=== PATIENT | female | born 1965 | race American Indian/Alaskan Native ===

== ENCOUNTER 2017-10-20 10:42 | Outpatient (CLI) | payer BC ==
--- NOTE | 2017-10-20 14:38 | Mammography Report ---
BILATERAL DIGITAL SCREENING MAMMOGRAM with CAD: 10/20/17 10:42:00 CLINICAL: Routine screening. COMPARISON:None. FINDINGS: The breasts are heterogeneously dense, which may obscure small masses. A circumscribed right inner mass in the right outer parenchymal asymmetry require additional imaging.No architectural distortion or suspicious calcifications.The left breast is negative. IMPRESSION: Right mass and asymmetry requiring further workup. BI-RADS CATEGORY: 0 -- Additional Imaging Evaluation Required RECOMMENDATION: Recall for right mediolateral , spot compression CC and MLO views and right breast ultrasound. ACR BI-RADS MAMMOGRAPHIC CODES: 0 = Needs additional imaging evaluation; 1 = Negative; 2 = Benign; 3 = Probably benign; 4 = Suspicious; 5 = Malignant; 6 = Known biopsy-proven malignancy COMMENT: 1. Dense breast tissue, i.e., adenosis, fibrocystic changes, etc., may obscure an underlying neoplasm. 2. Approximately 10% of cancers are not detected with mammography. 3. A negative mammography report should not delay biopsy if a clinically suspicious mass is present. COMMENT: Patient follow-up letters are generated via our [email or web address] application.
== END 2017-10-20 10:43 | disposition home or self-care (01) ==
LOC: SPVWC 10:42
PROVIDERS: ATTEND Family Medicine Adult Medicine
DX: Z12.31 Encounter for screening mammogram for malignant neoplasm of breast (principal)
CPT/HCPCS: 77067

== ENCOUNTER 2021-01-22 10:12 | Emergency (ER) | payer OTHER ==
[2021-01-22] MEDS ORDERED: FAMOTIDINE 20 MG/2 ML INJ IV ONE (10:18)
[2021-01-22] MEDS ORDERED: CETIRIZINE 10 MG TAB PO ONE (10:18)
[2021-01-22] MEDS ORDERED: ACETAMINOPHEN 500 MG TAB PO ONE (10:29)
[2021-01-22] MEDS ORDERED: BENZTROPINE 2 MG/2 ML INJ IM ONE (10:31)
--- NOTE | 2021-01-22 10:34 | Emergency Department Report ---
ED General Adult HPI - General Chief complaint: Dental/Oral Stated complaint: TONGUE SWELLING Time Seen by Provider: 01/22/21 10:17 Source: patient, EMS Mode of arrival: Stretcher Limitations: Other - History of Present Illness Initial comments: Chief complaint: "Purple swollen tongue" HPI: This is a 55-year-old female with a history of CVA, aphasia, hypertension, HIV, bipolar disorder, OCD who presents with purple swollen tongue. Employer provided history. Patient has aphasia. Will answer yes no lid head-nodding in head shaking. Employer noticed swollen purple tongue. Patient exhibits repetitive tongue movements. EMS did see the purple discoloration. No other noted symptoms. History limited due to aphasia. Patient pointed to the abdomen according to EMS for area of pain, patient received Solu-Medrol in route per EMS. -: Gradual, This morning Location: mouth (Tongue) Severity scale (0 -10): 0 Consistency: constant Improves with: none Worsens with: none Associated Symptoms: other (Patient pointed to her abdomen) - Related Data Home Medications Medication Instructions Recorded Confirmed Last Taken ALPRAZolam [Xanax TAB] 1 mg PO TID PRN 05/29/16 03/31/17 1 Week Ago ~03/24/17 Citalopram [Celexa] 40 mg PO QDAY 05/29/16 03/31/17 3 Days Ago ~03/28/17 Cyclobenzaprine [Flexeril 10 MG 10 mg PO TID PRN 05/29/16 03/31/17 3 Days Ago TAB] ~03/28/17 Efavirenz/Emtricit/Tenofovr Df 1 each PO QHS 05/30/16 03/31/17 3 Days Ago [Atripla Tablet] ~03/28/17 traZODone [Desyrel] 50 mg PO QHS #0 05/30/16 03/31/17 1 Week Ago ~03/24/17 Previous Rx's Medication Instructions Recorded Last Taken Type Albuterol Mdi (or & Nicu Only) 2 puff IH QID PRN 30 Days 07/15/13 3 Days Ago Rx [ProAir HFA Inhaler] inhalation ~03/28/17 Glimepiride [Amaryl] 4 mg PO QDDIAB #30 tablet 05/04/15 3 Days Ago Rx ~03/28/17 atenoloL [Tenormin] 25 mg PO QDAY #30 tablet 05/04/15 3 Days Ago Rx ~03/28/17 Aspirin 325 mg PO QDAY #30 tablet 04/01/17 Unknown Rx Simvastatin (Nf) [Zocor TAB] 20 mg PO QHS #30 tablet 04/01/17 Unknown Rx hydroCHLOROthiazide [HCTZ] 25 mg PO QDAY #30 tablet 04/01/17 Unknown Rx lisinopriL [Zestril TAB] 20 mg PO QDAY #30 tablet 04/01/17 Unknown Rx Allergies Allergy/AdvReac Type Severity Reaction Status Date / Time No Known Allergies Allergy Verified 03/28/17 21:09 ED Review of Systems ROS: Stated complaint: TONGUE SWELLING Other details as noted in HPI ED Past Medical Hx - Past Medical History Previous Medical History?: Yes Hx Hypertension: Yes Hx Heart Attack/AMI: No Hx Congestive Heart Failure: No Hx Diabetes: Yes Hx Deep Vein Thrombosis: No Hx Pulmonary Embolism: No Hx Liver Disease: No Hx Sickle Cell Disease: No Hx Asthma: Yes Hx COPD: No Hx Tuberculosis: No Hx HIV: Yes - Surgical History Past Surgical History?: Yes Hx Coronary Stent: No Hx Open Heart Surgery: No Hx Pacemaker: No Hx Internal Defibrillator: No Hx Cholecystectomy: No Hx Appendectomy: No Hx Breast Surgery: No Additional Surgical History: hernia repair at age 8. hysterectomy 2007 - Social History Smoking Status: Never Smoker - Medications Home Medications: Home Medications Medication Instructions Recorded Confirmed Last Taken Type Albuterol Mdi (or & Nicu Only) 2 puff IH QID PRN 30 Days 07/15/13 03/31/17 3 Days Ago Rx [ProAir HFA Inhaler] inhalation ~03/28/17 Glimepiride [Amaryl] 4 mg PO QDDIAB #30 tablet 05/04/15 03/31/17 3 Days Ago Rx ~03/28/17 atenoloL [Tenormin] 25 mg PO QDAY #30 tablet 05/04/15 03/31/17 3 Days Ago Rx ~03/28/17 ALPRAZolam [Xanax TAB] 1 mg PO TID PRN 05/29/16 03/31/17 1 Week Ago History ~03/24/17 Citalopram [Celexa] 40 mg PO QDAY 05/29/16 03/31/17 3 Days Ago History ~03/28/17 Cyclobenzaprine [Flexeril 10 MG 10 mg PO TID PRN 05/29/16 03/31/17 3 Days Ago History TAB] ~03/28/17 Efavirenz/Emtricit/Tenofovr Df 1 each PO QHS 05/30/16 03/31/17 3 Days Ago History [Atripla Tablet] ~03/28/17 traZODone [Desyrel] 50 mg PO QHS #0 05/30/16 03/31/17 1 Week Ago History ~03/24/17 Aspirin 325 mg PO QDAY #30 tablet 04/01/17 Unknown Rx Simvastatin (Nf) [Zocor TAB] 20 mg PO QHS #30 tablet 04/01/17 Unknown Rx hydroCHLOROthiazide [HCTZ] 25 mg PO QDAY #30 tablet 04/01/17 Unknown Rx lisinopriL [Zestril TAB] 20 mg PO QDAY #30 tablet 04/01/17 Unknown Rx ED Physical Exam - General Limitations: Other General appearance: alert, in no apparent distress, other (Patient has repetitive tongue movement) - Head Head exam: Present: atraumatic, normocephalic - Eye Eye exam: Present: normal appearance - ENT ENT exam: Present: mucous membranes moist, other (Normal size lips normal soft palate) - Neck Neck exam: Present: normal inspection. Absent: tenderness, meningismus - Respiratory Respiratory exam: Present: normal lung sounds bilaterally. Absent: respiratory distress, wheezes, rales, rhonchi, stridor, accessory muscle use, decreased breath sounds, prolonged expiratory - Cardiovascular Cardiovascular Exam: Present: regular rate, normal rhythm, normal heart sounds. Absent: systolic murmur, diastolic murmur, rubs, gallop - GI/Abdominal GI/Abdominal exam: Present: soft, normal bowel sounds. Absent: distended, tenderness - Extremities Exam Extremities exam: Present: normal inspection - Neurological Exam Neurological exam: Present: alert, oriented X3 - Psychiatric Psychiatric exam: Present: normal affect, normal mood - Skin Skin exam: Present: warm, dry, intact, normal color. Absent: rash ED Course Vital Signs 01/22/21 01/22/21 10:28 10:55 Temperature 98.6 F Pulse Rate 87 Respiratory 19 Rate Blood Pressure 164/101 [Left] O2 Sat by Pulse 98 Oximetry ED Medical Decision Making - Medical Decision Making I observe patient. Patient did not have any further complaints. She denies any pain. She dialed her 's number for me in order to help her get home. Differential diagnosis includes tardive dyskinesia, angioedema. No evidence of acute emergent condition. She desired to be discharged home. Possible tongue trauma from accidental biting. Critical care attestation.: If time is entered above; I have spent that time in minutes in the direct care of this critically ill patient, excluding procedure time. ED Disposition Clinical Impression: Tongue injury Disposition: DC-01 TO HOME OR SELFCARE Is pt being admited?: No Does the pt Need Aspirin: No Condition: Stable Referrals: PRIMARY CARE, [Primary Care Provider] - 3-5 Days GILBERT SCHERER MD [Staff Physician] - as needed
[2021-01-22 15:28] VITALS: BP 156/98
== END 2021-01-22 15:33 | disposition home or self-care (01) ==
LOC: ED 10:12
DX: S09.93XA Unspecified injury of face, initial encounter (principal); I10 Essential (primary) hypertension; E11.9 Type 2 diabetes mellitus without complications; J45.909 Unspecified asthma, uncomplicated; Z21 Asymptomatic human immunodeficiency virus [HIV] infection status; Z90.710 Acquired absence of both cervix and uterus; Z98.890 Other specified postprocedural states; Z79.899 Other long term (current) drug therapy; X58.XXXA Exposure to other specified factors, initial encounter; Y93.89 Activity, other specified; Y92.89 Other specified places as the place of occurrence of the external cause; Y99.8 Other external cause status
CPT/HCPCS: 96372; 96374; 99283; J0515

== ENCOUNTER 2021-05-30 11:03 | Outpatient (CLI) | payer OTHER ==
--- NOTE | 2021-06-02 07:49 | Mammography Report ---
DIGITAL SCREENING MAMMOGRAM WITH CAD, 05/30/2021 CLINICAL INFORMATION / INDICATION: Routine screening mammography. SCREENING MAMMO TECHNIQUE: Digital bilateral 2D mammography was obtained in the craniocaudal and mediolateral obliqu e projections. This examination was interpreted with the benefit of Computer-Aided Detection analysis . COMPARISON: 10/20/2017 and 02/26/2020. FINDINGS: Breast Density: There are scattered areas of fibroglandular density. No dominant mass, suspicious calcifications, or architectural distortion in either breast. Benign-appearing nodularity in the right breast has not changed significantly. IMPRESSION: No mammographic evidence of malignancy. Follow up recommendation: Routine yearly BI-RADS Category 2: Benign. A "normal" or negative report should not discourage follow up or biopsy of a clinically significant f inding. A written summary of these findings will be mailed to the patient. The patient will be entered into a mammography reporting system which will generate a reminder letter for the patient's next appointmen t at the appropriate interval. The [employer] recommends yearly mammograms starting at age 40 and continuing as l crys as a woman is in good health. Breast MRI is recommended for women with an approximate 20-25% or greater lifetime risk of breast cancer, including women with a strong family history of breast or ova herman cancer or who have been treated for Hodgkin's disease. Signer Name: Saurav Johnson MD Signed: 06/02/2021 7:45 AM Workstation Name: [id number]
== END 2021-05-30 11:04 | disposition home or self-care (01) ==
LOC: SPVWC 11:03
PROVIDERS: ATTEND Family Medicine Adult Medicine
DX: Z12.31 Encounter for screening mammogram for malignant neoplasm of breast (principal)
CPT/HCPCS: 77067